=== PATIENT | male | born 1980 | race Caucasian/White ===

== ENCOUNTER 2020-05-10 07:21 | Emergency (ER) | payer OTHER ==
[~2020-05-10] VITALS: Ht 180.3 cm; Wt 79.7 kg
--- NOTE | 2020-05-10 07:41 | NUR ---
PT STATES MID LOW BACK PAIN THAT RADIATES DOWN LLE, HX OF SAME. ALEXYS ASTUDILLO AT BEDSIDE FOR ASSESSMENT.
[2020-05-10] MEDS ORDERED: CYCLOBENZAPRINE 10 MG TABLET ONE (07:44)
[2020-05-10] MEDS ORDERED: KETOROLAC 30 MG/1 ML ONE (07:45)
--- NOTE | 2020-05-10 07:50 | NUR ---
PT MEDICATED FOR PAIN PER ORDERS.
[2020-05-10] MEDS ORDERED: KETOROLAC 30 MG/1 ML IM ONE (08:00)
[2020-05-10] MEDS ORDERED: CYCLOBENZAPRINE 10 MG TABLET PO ONE (08:00)
--- NOTE | 2020-05-10 09:05 | NUR ---
HI OK FOR D/C PER ER PA-C. PT STATES PAIN DECREASED, MEDICATIONS EFFECTIVE. PT HAS STEADY GAIT UPON D/C, VERBALIZED UNDERSTANDING OF D/C ORDERS.
[2020-05-10 09:06] VITALS: BP 131/87
== END 2020-05-10 09:08 | disposition home or self-care (01) ==
LOC: ED 08:35
DX: M54.42 Lumbago with sciatica, left side (principal); R00.0 Tachycardia, unspecified
CPT/HCPCS: 96372; 99283; J1885; J7512

== ENCOUNTER 2021-08-01 10:39 | Emergency (ER) | payer OTHER ==
[~2021-08-01] VITALS: Ht 180.3 cm; Wt 77.2 kg
[2021-08-01] MEDS ORDERED: METHOCARBAMOL 750 MG TABLET ONE (11:23)
[2021-08-01] MEDS ORDERED: KETOROLAC 30 MG/1 ML ONE (11:23)
[2021-08-01] MEDS ORDERED: HYDROmorphone 2 MG/ML, 1ML ONE (11:24)
[2021-08-01] MEDS ORDERED: METHOCARBAMOL 750 MG TABLET PO ONE (11:30)
[2021-08-01] MEDS ORDERED: HYDROmorphone 2 MG/ML, 1ML IM ONE (11:30)
[2021-08-01] MEDS ORDERED: KETOROLAC 30 MG/1 ML IM ONE (11:30)
[2021-08-01] MEDS ORDERED: HYDROcodone/APAP 5/325 TABLET ONE (12:49)
[2021-08-01] MEDS ORDERED: HYDROcodone/APAP 5/325 TABLET PO ONE (13:00)
[2021-08-01 13:29] VITALS: BP 151/88
== END 2021-08-01 13:31 | disposition home or self-care (01) ==
LOC: ED 12:00
DX: M54.42 Lumbago with sciatica, left side (principal); F17.200 Nicotine dependence, unspecified, uncomplicated
CPT/HCPCS: 72110; 96372; 99284; J1170; J1885